=== PATIENT | male | born 1965 | race Caucasian/White ===

== ENCOUNTER 2022-05-13 10:19 | Emergency (ER) | payer OTHER, SELFPAY ==
[2022-05-13 10:34] VITALS: BP 135/94; PULSE 78; RESP 16; TEMP 35.7; O2SAT 96; BMI 27.4
--- NOTE | 2022-05-13 11:05 | ED_ITS ---
HPI - General Adult General Chief complaint: Diarrhea Stated complaint: Diarrhea Time Seen by Provider: 05/13/22 10:55 Source: patient Mode of arrival: ambulatory Limitations: no limitations History of Present Illness HPI narrative: 57-year-old male coming in today concerned about diarrhea. States he has had diarrhea now for 3 or 4 days. Describes up to 12 bowel movements per day that are watery. Denies any blood in his stool. He states that he is now feeling very tired and feels ?depleted?. He denies any abdominal pain, he has some cramping when he has to go to the bathroom. He denies any dysuria, increased frequency or urgency. He denies any fevers. He states however that sometimes he feels call other times he feels very hot. He denies any recent traveling or camping. He denies anyone else at home with similar symptoms. States that his last colonoscopy was about 4 years ago and was unremarkable. Denies any recent antibiotic use. Denies weight loss. States that his appetite is less than normal but he has been eating and drinking. His past medical history significant for ADHD, anxiety, hyperlipidemia, GERD. Related Data Allergies Allergy/AdvReac Type Severity Reaction Status Date / Time Sulfa (Sulfonamide Allergy Verified 05/13/22 10:40 Antibiotics) Review of Systems Status of ROS: Reports: 10 or more systems reviewed and unremarkable except as noted in History and below [facility] Social History Smoking Status: Never smoker How often do you have a drink containing alcohol: 2-3 times a week AUDIT-C Alcohol total score: 3 Non-prescribed substance use: denies use Exam Narrative: Exam Narrative: Well-nourished well-developed patient in no acute distress. Alert and oriented. Answers questions appropriately. Mood and affect are appropriate. Thoughts are goal oriented and rational. No tangential or magical thinking noted. Patient speaks in full sentences without needing to catch their breath. HEENT: Normocephalic atraumatic. Pupils are equally round reactive to light. Extraocular muscles are intact. Conjunctivae are moist without any icterus noted. Slightly dry mucous membranes. Posterior pharynx is normal. Neck is soft without any lymphadenopathy or thyromegaly. No masses are appreciated. Cardiovascular: Heart is regular rate and rhythm S1 and S2 are present without any murmurs. Lungs: Clear to auscultation bilaterally no wheezes rhonchi or rales are appreciated. Patient takes deep breaths without any discomfort. Abdomen: Soft and nontender nondistended with normal bowel sounds. No guarding or rebound. No masses or organomegaly appreciated. Extremities: Bilateral lower extremities are without edema. Normal DP and PT pulses. Skin: Well perfused without any obvious rashes. Const: Vital Signs, click to edit/add: Vital Signs - 24 hr 05/13/22 10:34 Temperature 96.2 F L Pulse Rate [Left P ulse Oximeter] 78 Respiratory Rate 16 Blood Pressure [Ri ght Upper Arm] 135/94 H Pulse Oximetry 96 Course Course Hospital Course: IV was started, patient received a L of normal saline and oral potassium given his hyponatremia and hypokalemia. He felt better after treatment. Remainder of the labs were unremarkable. Stool cultures and C diff testing pending. Vital Signs Vital signs: Initial Vital Signs Temperature 96.2 F L 05/13/22 10:34 Temperature Source Temporal Artery Scan 05/13/22 10:34 Pulse Rate 78 05/13/22 10:34 Respiratory Rate 16 05/13/22 10:34 Blood Pressure 135/94 H 05/13/22 10:34 Blood Pressure Mean 107 05/13/22 10:34 Pulse Oximetry 96 05/13/22 10:34 Oxygen Delivery Method 05/13/22 10:34 Vital Signs Temperature 96.2 F L 05/13/22 10:34 Pulse Rate 78 05/13/22 10:34 Respiratory Rate 16 05/13/22 10:34 Blood Pressure 135/94 H 05/13/22 10:34 Pulse Oximetry 96 05/13/22 10:34 Temperature 96.2 F L 05/13/22 10:34 Pulse Rate 78 05/13/22 10:34 Respiratory Rate 16 05/13/22 10:34 Blood Pressure 135/94 H 05/13/22 10:34 Pulse Oximetry 96 05/13/22 10:34 Medical Decision Making MDM Narrative Medical decision making narrative: 57-year-old male with several days of diarrhea. Stool testing pending. Patient status post IV fluids and potassium replacement in the ER. We discussed increasing hydration with nutrient dense for liquids. We discussed Imodium to slow down the diarrhea. We discussed reasons to return for follow-up. Patient was agreeable had no other questions. Medical Records Medical records reviewed: Yes I reviewed the patient's medical records Lab Data Lab results reviewed: Yes I reviewed the patient's lab results Labs: Lab Results 05/13/22 05/13/22 05/13/22 Range/Units 11:17 11:17 11:17 WBC 5.32 (4.50-11.00) K/uL RBC 5.11 (4.30-5.90) m/uL Hgb 15.0 (13.5-17.5) gm/dL Hct 43.1 (37.0-53.0) % MCV 84 (80-100) fL MCH 29 (26-34) pg MCHC 35 (32-36) gm/dL RDW Coeff of Rylie 13.0 (11.5-15.5) % Plt Count 122 L (140-440) K/uL Neut % (Auto) 80.4 H (42.0-72.0) % Lymph % (Auto) 12.6 L (20-44) % [place] % (Auto) 6.2 (0.0-11.0) % Eos % (Auto) 0.2 (0.0-7.0) % Baso % (Auto) 0.4 (0.0-3.0) % Neut # (Auto) 4.30 (1.7-7.0) K/uL Lymph # (Auto) 0.70 L (0.90-2.90) K/uL [place] # (Auto) 0.30 (0.00-0.90) K/UL Eos # (Auto) 0.01 (0.00-0.50) K/uL Baso # (Auto) 0.02 (0.00-0.30) K/uL Abs Immat Gran (auto) 0.01 (0.00-0.30) K/uL Sodium 133 L (135-149) mmol/L Potassium 3.4 L (3.6-5.1) mmol/L Chloride 99 (96-114) mmol/L Carbon Dioxide 25 (20-32) mmol/L BUN 16 (7-30) mg/dL Creatinine 0.9 (0.5-1.5) mg/dL Estimated Creat Clear 111.18 Estimated GFR 100 ml/min Glucose 126 H (60-115) mg/dL Lactate 1.3 (0.5-1.9) mmol/L Calcium 8.7 (8.4-10.6) mg/dL Lipase (23-300) U/L 05/13/22 Range/Units 11:17 WBC (4.50-11.00) K/uL RBC (4.30-5.90) m/uL Hgb (13.5-17.5) gm/dL Hct (37.0-53.0) % MCV (80-100) fL MCH (26-34) pg MCHC (32-36) gm/dL RDW Coeff of Rylie (11.5-15.5) % Plt Count (140-440) K/uL Neut % (Auto) (42.0-72.0) % Lymph % (Auto) (20-44) % [place] % (Auto) (0.0-11.0) % Eos % (Auto) (0.0-7.0) % Baso % (Auto) (0.0-3.0) % Neut # (Auto) (1.7-7.0) K/uL Lymph # (Auto) (0.90-2.90) K/uL [place] # (Auto) (0.00-0.90) K/UL Eos # (Auto) (0.00-0.50) K/uL Baso # (Auto) (0.00-0.30) K/uL Abs Immat Gran (auto) (0.00-0.30) K/uL Sodium (135-149) mmol/L Potassium (3.6-5.1) mmol/L Chloride (96-114) mmol/L Carbon Dioxide (20-32) mmol/L BUN (7-30) mg/dL Creatinine (0.5-1.5) mg/dL Estimated Creat Clear Estimated GFR ml/min Glucose (60-115) mg/dL Lactate (0.5-1.9) mmol/L Calcium (8.4-10.6) mg/dL Lipase 110 (23-300) U/L Discharge Plan Discharge Clinical Impression: Diarrhea Patient Disposition: Home, Self-Care Condition: Stable Additional Instructions: Make sure to stay well hydrated. Consider fluids with electrolytes and nutrition such as bone broths, Pedialyte. Follow Up/Referrals: Santos Figueroa MD [Primary Care Provider] - Stand Alone Forms: [employer] Info Instructions
[2022-05-13] MEDS: 0.9 % SODIUM CHLORIDE 1000 ml 1,000 ML IV (11:20)
[2022-05-13 11:30] LABS: Lactate* 1.3 mmol/L (0.5-1.9)
[2022-05-13 11:31] LABS: Basophils Absolute Auto 0.02 K/uL (0.00-0.30); Basophils Percent Auto 0.4 % (0.0-3.0); Eosinophils Absolute Auto 0.01 K/uL (0.00-0.50); Eosinophils Percent Auto 0.2 % (0.0-7.0); Hematocrit 43.1 % (37.0-53.0); Immature Granulocytes Abs Auto 0.01 K/uL (0.00-0.30); Lymphocytes Percent Auto 12.6 % (20-44); Mean Corpuscular HGB Conc 35 gm/dL (32-36); Mean Corpuscular Hemoglobin 29 pg (26-34); Mean Corpuscular Volume 84 fL (80-100); Monocytes Percent Auto 6.2 % (0.0-11.0); Neutrophils Percent Auto 80.4 % (42.0-72.0); Platelet Count* 122 K/uL (140-440); Red Blood Count 5.11 m/uL (4.30-5.90); White Blood Count* 5.32 K/uL (4.50-11.00)
[2022-05-13 11:34] LABS: Slide Review Reflex No
[2022-05-13 11:59] LABS: Chloride* 99 mmol/L (96-114); Potassium* 3.4 mmol/L (3.6-5.1); Sodium* 133 mmol/L (135-149)
[2022-05-13 12:02] LABS: Blood Urea Nitrogen* 16 mg/dL (7-30); Carbon Dioxide* 25 mmol/L (20-32); Creatinine* 0.9 mg/dL (0.5-1.5); Est. Creatinine Clearance* 111.18; Estimated Glomerular Filt Rate 100 ml/min; Glucose* 126 mg/dL (60-115); Lipase* 110 U/L (23-300)
[2022-05-13 12:03] LABS: Calcium* 8.7 mg/dL (8.4-10.6)
[2022-05-13] MEDS: POTASSIUM CHLORIDE 10 MEQ CAPSULE ER 20 MEQ PO (12:20)
[2022-05-13 12:30] VITALS: BP 128/70; PULSE 72; RESP 12; TEMP 35.7; O2SAT 97
[2022-05-13 12:40] LABS: C.Difficile Negative (Negative); CDIFFEPI 027 PRESUMPTIVE NEGATIVE (Negative)
== END 2022-05-13 12:52 | disposition home or self-care (01) ==
PROVIDERS: Emergency Provider Family Medicine; PCP Family Medicine
DX: R19.7 Diarrhea, unspecified (principal)
CPT/HCPCS: 36415; 80048; 83605; 83690; 85025; 87045; 87046; 87177; 87427; 87493; 96360; 99284; A9270; J7030

== ENCOUNTER 2022-10-25 13:56 | Outpatient (CLI) | payer SELFPAY | END 2022-10-25 13:57 | disposition home or self-care (01) | LOC: AMB 10-30 13:51 | PROVIDERS: PCP Family Medicine; Visit Provider Family Medicine | DX: R55 Syncope and collapse (principal); R50.9 Fever, unspecified; R42 Dizziness and giddiness; R53.83 Other fatigue | CPT/HCPCS: A0425; A0427 ==

== ENCOUNTER 2022-10-25 14:30 | Emergency (ER) | payer SELFPAY ==
[2022-10-25] VITALS (19 sets, daily range): BP systolic 109–136; BP diastolic 64–87; PULSE 53–65; O2SAT 92–99; BMI 26.8
--- NOTE | 2022-10-25 14:41 | CRLHL7_ITS ---
For Patients: As a result of the Century Cures Act, medical imaging exams and procedure reports are released immediately into your electronic medical record. You may view this report before your referring provider. If you have questions, please contact your health care provider. INDICATION: Syncope. TECHNIQUE: Noncontrast CT images acquired through the brain. COMPARISON: None. FINDINGS: The ventricles and sulci are within normal limits for patient age. No mass effect or midline shift. The pop-white differentiation is maintained. No acute intracranial hemorrhage or pathologic extra-axial fluid collection. Atherosclerotic calcifications in the carotid siphons. The globes are symmetric. The calvarium is intact. [id number] left maxillary sinus mucosal thickening. Trace right mastoid effusion. IMPRESSION: No acute intracranial hemorrhage or mass effect. Please note that all CT scans at this facility use dose modulation, iterative reconstruction, and/or weight-based dosing when appropriate to reduce radiation dose to as low as reasonably achievable. Dictated by Gold Dey MD @ 10/25/2022 4:27:59 PM (Electronically Signed)
--- NOTE | 2022-10-25 14:41 | CRLHL7_ITS ---
For Patients: As a result of the Century Cures Act, medical imaging exams and procedure reports are released immediately into your electronic medical record. You may view this report before your referring provider. If you have questions, please contact your health care provider. INDICATION: Syncope. COMPARISON: None available. FINDINGS: An erect single view of the chest was obtained at 1535 hours. The lungs are clear. No focal or diffuse infiltrates are present. The heart is normal in size. The mediastinum is normal in appearance. The osseous structures are normal in appearance for the patient`s age. IMPRESSION: Normal chest single view. Dictated by Karlos Anders MD @ 10/25/2022 4:45:27 PM (Electronically Signed)
--- NOTE | 2022-10-25 14:43 | ED.GENADULT ---
HPI - General Adult General Time Seen by Provider: 14:43 Date Seen: 10/25/22 Chief complaint: Syncope/Fainted Stated complaint: Syncopal Time Seen by Provider: 10/25/22 14:36 Source: EMS Mode of arrival: EMS Limitations: physical limitation History of Present Illness HPI narrative: Patient is a 57 year white male that has history of anxiety depression, fatigue, sleep apnea, anxiety, hyperlipidemia who presents after a syncopal episode while walking to the grocery store today. He has been sick with a cough and a cold for the last 4-5 days. He walked into the store and then felt lightheaded and had a syncopal episode. Nose seizure activity reported, he was brought in by EMS. He feels better at this time. He still feels the nasal and facial congestion he has had with his cold. He denies any chest pain denies any injury from a fall or bruising or tenderness in his arms legs back head neck. He has had no marked fevers but has had congestion and cough. He reports this has been about 4-5 days as mention Related Data Home Medications Medication Instructions Recorded Confirmed cholecalciferol (vitamin D3) 25 25 mcg PO QDAY 05/23/22 05/23/22 mcg (1,000 unit) capsule pantoprazole 40 mg tablet,delayed 40 mg PO QDAY 05/23/22 05/23/22 release (Protonix) Previous Rx's Medication Instructions Recorded testosterone 20.25 mg/1.25 gram 4 pump topical QDAY #4 btls 05/25/22 (1.62 %) transdermal gel pump dextroamphetamine-amphetamine ER 25 mg PO QAM #30 caps 08/21/22 25 mg 24hr capsule,extend release (Adderall XR) dextroamphetamine-amphetamine ER 25 mg PO QDAY #30 caps 08/21/22 25 mg 24hr capsule,extend release (Adderall XR) sildenafil 50 mg tablet (Viagra) 50 - 100 mg PO QDAY PRN sexual 08/28/22 activity #60 tabs dextroamphetamine-amphetamine ER 25 mg PO QAM #30 caps 10/24/22 25 mg 24hr capsule,extend release (Adderall XR) escitalopram oxalate 10 mg tablet 10 mg PO QDAY #30 tabs 10/24/22 (Lexapro) rosuvastatin 5 mg tablet (Crestor) 5 mg PO QPM #60 tabs 10/24/22 Allergies Allergy/AdvReac Type Severity Reaction Status Date / Time Sulfa (Sulfonamide Allergy Unknown Verified 05/25/22 13:38 Antibiotics) Review of Systems Status of ROS: Reports: 10 or more systems reviewed and unremarkable except as noted in History and below [facility] Medical History Diarrhea Surgical History History of arthroscopy of right knee (09/29/16) Social History Smoking Status: Never smoker How often do you have a drink containing alcohol: 2-3 times a week How often do you have six or more drinks on one occasion: Never AUDIT-C Alcohol total score: 3 Non-prescribed substance use: denies use Little interest or pleasure in doing things: not at all Feeling down, depressed, or hopeless: not at all Exam Narrative: Exam Narrative: Objective: Patient denies a history of syncope Vital signs are being obtained, his pulse is been regular, his systolic blood pressures in the 110 range HEENT is unremarkable no facial asymmetry, pupils equal react to light Neck is supple Chest is clear Heart rhythm regular heart murmur Abdomen benign soft nontender no masses Extremities are no edema Neurologic nonfocal movement of the upper lower extremities noted. Const: Vital Signs, click to edit/add: Vital Signs - 24 hr 10/25/22 14:54 10/25/22 14:40 10/25/22 15:01 Pulse Rate 58 L Pulse Rate [Left P ulse Oximeter] 55 L Blood Pressure Blood Pressure [Ri ght Upper Arm] 109/64 Pulse Oximetry 92 92 97 Oxygen Delivery Me thod Room Air 10/25/22 15:02 10/25/22 15:03 10/25/22 15:15 Pulse Rate 60 53 L 64 Pulse Rate [Left P ulse Oximeter] Blood Pressure 125/86 Blood Pressure [Ri ght Upper Arm] Pulse Oximetry 97 95 93 Oxygen Delivery Me thod 10/25/22 15:30 10/25/22 15:32 10/25/22 15:33 Pulse Rate 61 58 L 60 Pulse Rate [Left P ulse Oximeter] Blood Pressure 132/84 Blood Pressure [Ri ght Upper Arm] Pulse Oximetry 93 94 94 Oxygen Delivery Me thod 10/25/22 16:02 10/25/22 16:03 10/25/22 16:04 Pulse Rate 62 62 63 Pulse Rate [Left P ulse Oximeter] Blood Pressure 124/86 Blood Pressure [Ri ght Upper Arm] Pulse Oximetry 98 98 96 Oxygen Delivery Me thod 10/25/22 16:15 10/25/22 16:30 10/25/22 16:32 Pulse Rate 65 63 62 Pulse Rate [Left P ulse Oximeter] Blood Pressure 129/87 Blood Pressure [Ri ght Upper Arm] Pulse Oximetry 99 99 97 Oxygen Delivery Me thod 10/25/22 16:33 10/25/22 16:45 Pulse Rate 63 60 Pulse Rate [Left P ulse Oximeter] Blood Pressure Blood Pressure [Ri ght Upper Arm] Pulse Oximetry 97 97 Oxygen Delivery Me thod Course Vital Signs Vital signs: Initial Vital Signs Pulse Oximetry 92 10/25/22 14:40 Vital Signs Pulse Oximetry 92 10/25/22 14:40 Pulse Rate 64 10/25/22 17:05 Blood Pressure 136/82 10/25/22 17:05 Pulse Oximetry 98 10/25/22 17:05 Oxygen Delivery Method 10/25/22 14:54 Medical Decision Making MDM Narrative Medical decision making narrative: Patient is a pleasant 57 year white male had a upper respiratory infection for the last 4-5 days, had a syncopal episode ball going into a grocery store. Rule out arrhythmia, rule out vasovagal spell, rule out ACS. Patient will get the above-mentioned studies disposition pending findings. He will get an EKG done now which by my read shows sinus bradycardia rate of 57 beats per minute no acute ST-T of changes. He will get a head CT scan because he had the syncopal episode and this is uncommon for him, a triple swab nasopharyngeal swab Laboratory studies hemoglobin. Troponin. Disposition as above labs dictate. Addendum: Patient's chest x-ray by my review looks unremarkable. His EKG by my read shows normal sinus rhythm too bradycardic at 57 beats per minute no acute ST T wave changes as well no ectopy. Patient's head CT was read as negative. His vital signs remained stable, his telemetry has shown normal sinus rhythm without ectopy. His white count is 4830 hemoglobin is 15.7 electrolyte its are unremarkable other than slightly elevated nonfasting glucose at 1:49 a.m. troponin is negative x2 CRP is negative at 0.7 COVID/influenza/RSV tests are negative. After discussion patient felt comfortable going home he received IV fluid he feels fine at this point he does have a cyst tiny reuben on his right cheek that could be consistent with contusion . Denies any neck pain denies headache. At this point again limb go home I am going to place him on a Holter monitor, he should recheck with regular doctor in the next couple of days for reassessment. Return to ED sooner problems or concerns. Light activity recommended, no driving for the next couple of days, fluid hydration. I suspect he may have had a vasovagal spell related to his viral syndrome. Patient does definitely need follow-up however in further discussion if symptoms. Lab Data Labs: Lab Results 10/25/22 10/25/22 10/25/22 Range/Units 14:41 14:56 14:56 WBC 4.83 (4.50-11.00) K/uL RBC 5.46 (4.30-5.90) m/uL Hgb 15.7 (13.5-17.5) gm/dL Hct 46.6 (37.0-53.0) % MCV 85 (80-100) fL MCH 29 (26-34) pg MCHC 34 (32-36) gm/dL RDW Coeff of Rylie 12.7 (11.5-15.5) % Plt Count 182 (140-440) K/uL Neut % (Auto) 54.4 (42.0-72.0) % Lymph % (Auto) 37.7 (20-44) % [place] % (Auto) 5.6 (0.0-11.0) % Eos % (Auto) 1.7 (0.0-7.0) % Baso % (Auto) 0.4 (0.0-3.0) % Neut # (Auto) 2.63 (1.7-7.0) K/uL Lymph # (Auto) 1.82 (0.90-2.90) K/uL [place] # (Auto) 0.30 (0.00-0.90) K/UL Eos # (Auto) 0.08 (0.00-0.50) K/uL Baso # (Auto) 0.02 (0.00-0.30) K/uL Sodium 140 (135-149) mmol/L Potassium 3.7 (3.6-5.1) mmol/L Chloride 105 (96-114) mmol/L Carbon Dioxide 26 (20-32) mmol/L BUN 24 (7-30) mg/dL Creatinine 0.9 (0.5-1.5) mg/dL Estimated Creat Clear 111.18 Estimated GFR 100 ml/min Glucose 149 H (60-115) mg/dL Calcium 8.8 (8.4-10.6) mg/dL Total Bilirubin 0.7 (0.1-1.5) mg/dL Direct Bilirubin 0.1 (0.0-0.5) mg/dL AST 36 H (12-35) U/L ALT 39 (4-50) U/L Alkaline Phosphatase 82 (40-150) U/L Troponin I < 0.01 L (0.01-0.04) ng/mL C-Reactive Protein 0.7 (0.5-1.0) mg/dL Total Protein 7.5 (6.0-8.3) g/dL Albumin 4.7 (3.3-5.0) g/dL SARS-CoV-2 (PCR) Negative SARS-CoV-2 (Negative) Influenza Type A (PCR) Negative PCR FLU A (Negative) Influenza Type B (PCR) Negative PCR FLU B (Negative) RSV (PCR) Negative PCR RSV (Negative) POC Troponin I (0.01-0.04) ng/ml 10/25/22 Range/Units 16:37 WBC (4.50-11.00) K/uL RBC (4.30-5.90) m/uL Hgb (13.5-17.5) gm/dL Hct (37.0-53.0) % MCV (80-100) fL MCH (26-34) pg MCHC (32-36) gm/dL RDW Coeff of Rylie (11.5-15.5) % Plt Count (140-440) K/uL Neut % (Auto) (42.0-72.0) % Lymph % (Auto) (20-44) % [place] % (Auto) (0.0-11.0) % Eos % (Auto) (0.0-7.0) % Baso % (Auto) (0.0-3.0) % Neut # (Auto) (1.7-7.0) K/uL Lymph # (Auto) (0.90-2.90) K/uL [place] # (Auto) (0.00-0.90) K/UL Eos # (Auto) (0.00-0.50) K/uL Baso # (Auto) (0.00-0.30) K/uL Sodium (135-149) mmol/L Potassium (3.6-5.1) mmol/L Chloride (96-114) mmol/L Carbon Dioxide (20-32) mmol/L BUN (7-30) mg/dL Creatinine (0.5-1.5) mg/dL Estimated Creat Clear Estimated GFR ml/min Glucose (60-115) mg/dL Calcium (8.4-10.6) mg/dL Total Bilirubin (0.1-1.5) mg/dL Direct Bilirubin (0.0-0.5) mg/dL AST (12-35) U/L ALT (4-50) U/L Alkaline Phosphatase (40-150) U/L Troponin I (0.01-0.04) ng/mL C-Reactive Protein (0.5-1.0) mg/dL Total Protein (6.0-8.3) g/dL Albumin (3.3-5.0) g/dL SARS-CoV-2 (PCR) (Negative) Influenza Type A (PCR) (Negative) Influenza Type B (PCR) (Negative) RSV (PCR) (Negative) POC Troponin I 0.00 L (0.01-0.04) ng/ml Discharge Plan Discharge Clinical Impression: Acute upper respiratory infection, Syncope Patient Disposition: Home w/ Parent or Adult Condition: Improved Additional Instructions: Light activity, fluids, no driving for the next couple of days till feels better, follow up with primary care in 2-3 days, Tylenol as needed. Return to ED sooner problems or concerns Activity Level: Light activity Discharge Diet: Regular Prescriptions: No Action pantoprazole [Protonix] 40 mg tablet,delayed release (DR/EC) 40 mg PO QDAY cholecalciferol (vitamin D3) 25 mcg (1,000 unit) capsule 25 mcg PO QDAY testosterone 20.25 mg/1.25 gram (1.62 %) gel in metered-dose pump 4 pump topical QDAY Qty: 4 3RF Rx Instructions: apply 1 pump amount over max area of EACH upper arm and shoulder dextroamphetamine-amphetamine [Adderall XR] 25 mg capsule,extended release 24hr 25 mg PO QAM Qty: 30 0RF dextroamphetamine-amphetamine [Adderall XR] 25 mg capsule,extended release 24hr 25 mg PO QDAY Qty: 30 0RF sildenafil [Viagra] 50 mg tablet 50 - 100 mg PO QDAY PRN (Reason: sexual activity) Qty: 60 2RF Rx Instructions: administer 30 minutes to 4 hours before activity escitalopram oxalate [Lexapro] 10 mg tablet 10 mg PO QDAY Qty: 30 0RF rosuvastatin [Crestor] 5 mg tablet 5 mg PO QPM Qty: 60 0RF dextroamphetamine-amphetamine [Adderall XR] 25 mg capsule,extended release 24hr 25 mg PO QAM Qty: 30 0RF Follow Up/Referrals: Santos Figueroa MD [Primary Care Provider] - Stand Alone Forms: [employer] Info Instructions
[2022-10-25] MEDS: 0.9 % SODIUM CHLORIDE 1000 ml 1,000 ML 6000 ML IV (14:53)
[2022-10-25 15:04] LABS: Basophils Absolute Auto 0.02 K/uL (0.00-0.30); Basophils Percent Auto 0.4 % (0.0-3.0); Eosinophils Absolute Auto 0.08 K/uL (0.00-0.50); Eosinophils Percent Auto 1.7 % (0.0-7.0); Hematocrit 46.6 % (37.0-53.0); Hemoglobin* 15.7 gm/dL (13.5-17.5); Immature Granulocytes Abs Auto 0.01 K/uL (0.00-0.30); Immature Granulocytes Pct Auto 0.2 %; Lymphocytes Absolute Auto 1.82 K/uL (0.90-2.90); Lymphocytes Percent Auto 37.7 % (20-44); Mean Corpuscular HGB Conc 34 gm/dL (32-36); Mean Corpuscular Hemoglobin 29 pg (26-34); Mean Corpuscular Volume 85 fL (80-100); Monocytes Percent Auto 5.6 % (0.0-11.0); Neutrophils Absolute Auto 2.63 K/uL (1.7-7.0); Neutrophils Percent Auto 54.4 % (42.0-72.0); Platelet Count* 182 K/uL (140-440); RDW Coefficient of Variation % 12.7 % (11.5-15.5); Red Blood Count 5.46 m/uL (4.30-5.90); White Blood Count* 4.83 K/uL (4.50-11.00)
[2022-10-25 15:17] LABS: Albumin* 4.7 g/dL (3.3-5.0); Chloride* 105 mmol/L (96-114); Potassium* 3.7 mmol/L (3.6-5.1); Sodium* 140 mmol/L (135-149)
[2022-10-25 15:19] LABS: Creatinine* 0.9 mg/dL (0.5-1.5); Est. Creatinine Clearance* 111.18; Estimated Glomerular Filt Rate 100 ml/min
[2022-10-25 15:20] LABS: Aspartate Amino Transferase* 36 U/L (12-35); Bilirubin Direct* 0.1 mg/dL (0.0-0.5); Bilirubin Total* 0.7 mg/dL (0.1-1.5); Carbon Dioxide* 26 mmol/L (20-32); Total Protein* 7.5 g/dL (6.0-8.3)
[2022-10-25 15:21] LABS: Alanine Aminotransferase* 39 U/L (4-50); Alkaline Phosphatase* 82 U/L (40-150); Blood Urea Nitrogen* 24 mg/dL (7-30); Calcium* 8.8 mg/dL (8.4-10.6); Glucose* 149 mg/dL (60-115)
[2022-10-25 15:23] LABS: C Reactive Protein* 0.7 mg/dL (0.5-1.0)
[2022-10-25 15:25] LABS: PCR FLU A Negative PCR FLU A (Negative); PCR FLU B Negative PCR FLU B (Negative); PCR RSV Negative PCR RSV (Negative)
[2022-10-25 15:38] LABS: Troponin I* < 0.01 ng/mL (0.01-0.04)
[2022-10-25 15:49] LABS: SARS PCR* Negative SARS-CoV-2 (Negative)
[2022-10-25 15:50] LABS: Slide Review Reflex No
== END 2022-10-25 17:40 | disposition home or self-care (01) ==
PROVIDERS: Emergency Provider Family Medicine; PCP Family Medicine
DX: R55 Syncope and collapse (principal); J06.9 Acute upper respiratory infection, unspecified
CPT/HCPCS: 36415; 70450; 71045; 80048; 80076; 84484; 85025; 86140; 87502; 87634; 87635; 93005; 93225; 93226; 94761; 96360; 99285; J7030

== ENCOUNTER 2023-05-09 08:00 | Outpatient (CLI) | payer BC, SELFPAY | END 2023-05-09 08:01 | disposition home or self-care (01) | LOC: NFLDREF 05-10 07:45 | PROVIDERS: PCP Family Medicine; Visit Provider Family Medicine | DX: E78.5 Hyperlipidemia, unspecified (principal); Z79.899 Other long term (current) drug therapy; E34.9 Endocrine disorder, unspecified; Z12.5 Encounter for screening for malignant neoplasm of prostate; R53.83 Other fatigue; E29.1 Testicular hypofunction; F41.9 Anxiety disorder, unspecified | CPT/HCPCS: 80053; 80061; 82306; 84153; 84270; 84402; 84403 ==

== ENCOUNTER 2024-03-14 07:18 | Outpatient (CLI) | payer OTHER, SELFPAY ==
--- OUTSIDE RECORDS SUMMARY | 2024-03-14 07:19 | XMS_ITS | Clinical Summary ---
Author Organization [facility] Address [place], [place] [address] Care Team Providers Care Web Design Instructor Name Role Phone Adam Miranda MD Primary Care Provider Allergies Active Allergy Reactions Criticality Noted Date Comments Levonorgestrel-Ethinyl Estrad Runny Nose 2017 Runny nose Medications Medication Sig Dispensed Refills Start Date End Date Status terbinafine HCl (LAMISIL) 250 mg tabletIndications:Dai chomycosis TAKE ONE TABLET BY MOUTH DAILY 30 tablet 2 07/16/2018 Active Immunizations Name Administration Dates Next Due Hep B (Hepatitis B (Adult) Recombinant Adjuvante d) 05/18/2022,08/18/2020 Hepatitis A (Adult) 08/18/2020 Influenza, IIV4 07/29/2021,09/10/2019 Influenza, Injectable, Mdck, Quadrivalent, W/preservative 07/05/2020 Td, Preservative Free (age >= 7 Years) 8 Social History Tobacco Use Types Packs/Day Years Used Date Smoking Tobacco: Never Smokeless Tobacco: Never Sex and Gender Information Value Date Recorded Sex Assigned at Not on file Gender Identity Not on file Sexual Orientation Not on file Obstetrics History Last Filed Vital Signs Vital Sign Reading Time Taken Comments Blood Pressure 131/85 12/11/2017 4:13 PM [employer]GUILLON DEBEADER Pulse 71 12/11/2017 4:13 PM [employer]GUILLON DEBEADER Temperature - - Respiratory Rate - - Oxygen Saturation 98% 12/11/2017 4:13 PM LEGUILLON DEBEADER Inhaled Oxygen Concentration - - Weight 99.6 kg (219 lb 9.6 oz) 12/11/2017 4:13 P M LEGUILLON DEBEADER Height - - Body Mass Index - - Plan of Treatment Health Maintenance Due Date Last Done Comments Tdap 01/24/1976 HIV for age 15-65 01/24/1980 BMI (ht and wt on same day) for age 18+ 1983 Hepatitis C screening for age 18-79 1983 Colonoscopy through age 75 2010 Lipids for age 45-75 2010 Zoster (shingles) series for age 50+ (1 of 2) 2015 Depression screening for age 12+ 10/28/2020 10/28/2019, 09/02/2019, 08/28/2019, Additional history exists COVID-19 vaccine series ( season) 2023 09/12/2021, 12/02/2020, 11/04/2020 Influenza for age 50-64 06/22/2024 07/29/20, 07/05/2020, 09/10/2019 Tetanus booster 06/06/2028 06/06/2018 Pneumococcal series for age 6-64 Aged Out No longer eligible based on patient's age to complete this topic Care Teams Web Design Instructor Relationship Specialty Start Date End Date Adam Miranda MD [address] [place] [address] PCP - General Internal Medicine 11/26/17
--- NOTE | 2024-03-14 07:50 | W.ANESCHARGE ---
Anesthesia Charges Start Date/Time Anesthesia Start Date: 03/14/24 Anesthesia Start Time: 07:57 Stop Date/Time Anesthesia Stop Date: 03/14/24 Anesthesia Stop Time: 08:21
--- NOTE | 2024-03-14 08:13 | W.ANESCHARGE ---
Anesthesia Charges Start Date/Time Anesthesia Start Date: 03/14/24 Anesthesia Start Time: 07:57 Stop Date/Time Anesthesia Stop Date: 03/14/24 Anesthesia Stop Time: 08:21
== END 2024-03-14 07:19 | disposition home or self-care (01) ==
LOC: OP CLINIC 07:18
PROVIDERS: PCP Family Medicine; Visit Provider Internal Medicine
DX: Z12.11 Encounter for screening for malignant neoplasm of colon (principal); K63.5 Polyp of colon
CPT/HCPCS: 00811; 45380; 88305; J2704

== ENCOUNTER 2024-06-02 07:35 | Outpatient (CLI) | payer OTHER, SELFPAY ==
--- OUTSIDE RECORDS SUMMARY | 2024-06-06 00:33 | XMS_ITS | Clinical Summary ---
Author Organization [facility] Address [place], [place] [address] Care Team Providers Care Patient Service Coordinator Name Role Phone Adam Miranda MD Primary [...] Comments Blood Pressure 131/85 12/11/2017 4:13 PM ENVIRONMENTAL SCIENCE TECHNICIAN Pulse 71 12/11/2017 4:13 PM ENVIRONMENTAL SCIENCE TECHNICIAN Temperature - - Respiratory Rate - - Oxygen Saturation 98% 12/11/2017 4:13 PM ENVIRONMENTAL SCIENCE TECHNICIAN Inhaled Oxygen Concentration - - Weight 99.6 kg (219 lb 9.6 oz) 12/11/2017 4:13 P M ENVIRONMENTAL SCIENCE TECHNICIAN Height - - Body Mass Index - [...] age to complete this topic Care Teams Patient Service Coordinator Relationship Specialty Start Date End Date Adam Miranda MD [address] [place] [address] PCP - General Internal Medicine 11/26/17
== END 2024-06-02 07:36 | disposition home or self-care (01) ==
LOC: NFLDREF 06-06 00:31
PROVIDERS: PCP Family Medicine; Referring Provider Family Medicine; Visit Provider Family Medicine
DX: E29.1 Testicular hypofunction (principal); E34.9 Endocrine disorder, unspecified; E78.5 Hyperlipidemia, unspecified
CPT/HCPCS: 80053; 80061; 84270; 84402; 84403; G0103

== ENCOUNTER 2024-09-04 07:36 | Outpatient (CLI) | payer OTHER, SELFPAY ==
--- OUTSIDE RECORDS SUMMARY | 2024-09-08 12:32 | XMS_ITS | Clinical Summary ---
Author Organization [employer] [facility] Address [place], [place] [address] Care Team Providers Care Occupational Medicine Physician Name Role Phone Adam Miranda MD Primary [...] Comments Blood Pressure 131/85 12/11/2017 4:13 PM [employer] Pulse 71 12/11/2017 4:13 PM [employer]ERS' [employer] Temperature - - Respiratory Rate - - Oxygen Saturation 98% 12/11/2017 4:13 PM TEACHERS' AIDE Inhaled Oxygen Concentration - - Weight 99.6 kg (219 lb 9.6 oz) 12/11/2017 4:13 P M TEACHERS' AIDE Height - - Body Mass Index - [...] history exists COVID-19 vaccine series ( season) 2024 09/12/2021, 12/02/2020, 11/04/2020 Influenza for age 50-64 06/22/2024 07/29/20, 07/05/2020, 09/10/2019 Tetanus booster 06/06/2028 06/06/2018 Pneumococcal series for age 6-64 Aged Out No longer eligible based on patient's age to complete this topic Care Teams Occupational Medicine Physician Relationship Specialty Start Date End Date Adam Miranda MD [address] [place] [address] PCP - General Internal Medicine 11/26/17
--- OUTSIDE RECORDS SUMMARY | 2024-09-08 12:32 | XMS_ITS | Continuity of Care Document ---
Author Organization Formerly [facility], [facility] Address [address] [facility] [address] [place] [id number] Insurance Providers Payer Plan Claims Address Claims Phone Policy Number Group Number Relation Employer Guarantor Name Guarantor Guarantor Address Guarantor Phone [employer] [address] [address], [place] [address] tel:[phone] Self Annmarie Castellano 1965 [address] , [address] [place] [id number] [facility] Medic a Choi e [id number] Self Annmarie Castellano [address] [place] [id number] [place] 220G [place] 220G [id number] Self Annmarie Castellano 1965 [address], [address] [place] [id number] Problems Condition ICD9 code ICD10 code SNOMED code Start Date End Date S tatus Essential (primary) hypertension I10 Endocrine disorder, unspecified E34.9 Hyperlipidemia, unspecified E78.5 Results No Results Allergies, adverse reactions, alerts No known allergies and adverse reactions Medications No administered medications reported Vital Signs No vital signs reported Social History No smoking Hx information available
== END 2024-09-04 07:37 | disposition home or self-care (01) ==
LOC: NFLDREF 09-08 12:31
PROVIDERS: PCP Family Medicine; Referring Provider Family Medicine; Visit Provider Family Medicine
DX: I10 Essential (primary) hypertension (principal); E34.9 Endocrine disorder, unspecified; E78.5 Hyperlipidemia, unspecified
CPT/HCPCS: 80061; 80076; 84270; 84402; 84403

== ENCOUNTER 2025-08-18 07:55 | Outpatient (CLI) | payer OTHER, SELFPAY | END 2025-08-18 07:56 | disposition home or self-care (01) | LOC: NFLDREF 08-19 19:22 | PROVIDERS: PCP Family Medicine; Referring Provider Family Medicine; Visit Provider Family Medicine | DX: R53.83 Other fatigue (principal); E34.9 Endocrine disorder, unspecified; Z12.5 Encounter for screening for malignant neoplasm of prostate; E78.5 Hyperlipidemia, unspecified; N52.9 Male erectile dysfunction, unspecified | CPT/HCPCS: 80053; 80061; 84270; 84402; 84403; G0103 ==